=== PATIENT | female | born 1985 | race American Indian/Alaskan Native ===

== ENCOUNTER 2016-04-04 13:21 | Emergency (ER) | payer MEDICAID ==
[2016-04-04] MEDS ORDERED: TORADOL IV ONE (16:12)
[2016-04-04] MEDS ORDERED: ZOFRAN IV ONE (16:12)
--- NOTE | 2016-04-04 16:16 | Emergency Department Report ---
Chief Complaint: Back Pain/Injury Stated Complaint: BACK PAIN/ABD PAIN - HPI History of Present Illness: Patient c/o achy right abdomen and flank pain x 5 days ago. Reports bruising appearing to flank and abdomen the following day. Reports nausea. Denies fever, chills, vomit, diarrhea, genitourinary symptoms. LMP 03/19/16 - Exam Vital Signs: Vital Signs 04/04/16 13:46 Temperature 98.5 F Pulse Rate 75 Respiratory 18 Rate Blood Pressure 138/83 O2 Sat by Pulse 99 Oximetry Physical Exam: General: NAD. Abdomen: Generalized tenderness. + Ecchymosis of right flank and lower back. + BS. MSE screening note: Focused history and physical exam performed. Due to findings the following was ordered: CBC, CMP, UA, Lipase, CT abd/pelvis w /o, UHCG, Saline lock, Toradol 15 mg IV once. ED Medical Decision Making - Medical Decision Making Patient to see MD immediately at main ED. ED Disposition for MSE Condition: Stable
[2016-04-04 16:50] LABS: Basophils % (Auto) 0.8 % (0.0-1.8); Eosinophils % (Auto) 0.9 % (0.0-4.3); Hematocrit 36.8 % (30.3-42.9); Hemoglobin 11.7 gm/dl (10.1-14.3); Mean Corpuscular HGB Conc 32 % (30-34); Mean Corpuscular Hemoglobin 27 pg (28-32); Mean Corpuscular Volume 84 fl (79-97); Platelet Count 440 K/mm3 (140-440); White Blood Count 6.6 K/mm3 (4.5-11.0)
[2016-04-04 17:11] LABS: Alanine Aminotransferase 18 units/L (7-56); Albumin 3.8 g/dL (3.9-5); Alkaline Phosphatase 48 units/L (35-129); Anion Gap 17 mmol/L; Bilirubin,Total 0.2 mg/dL (0.1-1.2); Blood Urea Nitrogen 6 mg/dL (7-17); Calcium 8.6 mg/dL (8.4-10.2); Carbon Dioxide 24 mmol/L (22-30); Chloride 100.9 mmol/L (98-107); Glucose 91 mg/dL (65-100); Lipase 21 units/L (13-60); Potassium 3.9 mmol/L (3.6-5.0); Sodium 138 mmol/L (137-145); Total Protein 7.7 g/dL (6.3-8.2)
[2016-04-04 17:48] LABS: Bilirubin,Urine NEG (Negative); Blood,Urine NEG (Negative); Ketones,Urine NEG (Negative); Leukocyte Esterase,Urine NEG (Negative); Mucus,Urine FEW /HPF; Nitrite,Urine NEG (Negative); Protein,Urine <15 mg/dL mg/dL (Negative); Urobilinogen,Urine < 2.0 mg/dL (<2.0)
--- NOTE | 2016-04-04 18:16 | Emergency Department Report ---
ED Abdominal Pain HPI - General Chief Complaint: Back Pain/Injury Stated Complaint: BACK PAIN/ABD PAIN Time Seen by Provider: 04/04/16 17:48 Source: patient Mode of arrival: Ambulatory Limitations: No Limitations - History of Present Illness Initial Comments: Patient presents with abdominal pain and lower back pain that began 4 days ago. She also reports bruising to right upper anterior thigh and her back. She denies injury, swelling. She has been taking Tylenol and Motrin for the pain with mild relief. She states the pain is to the point where she is losing sleep at night and has decreased appetite. She does admit to the pain begin generalized in abdominal area and admits to nausea. She denies urinary symptoms including frequency, urgency and pain. MD Complaint: abdominal pain, flank pain, other (bilateral back pain) -: Gradual, days(s) (4) Location: diffuse (greater on right) Radiation: none Migration to: bilateral flank Severity: severe Severity scale (0 -10): 9 Consistency: intermittent Improves With: rest Worsens With: movement, other (palpation) Associated Symptoms: nausea, constipation. denies: vomiting, diarrhea, fever, chills Treatments Prior to Arrival: NSAIDs, other (tylenol) - Related Data Previous Rx's Medication Instructions Recorded Last Taken Type HYDROcodone/APAP 5-325 [[place] 1 each PO Q8HR PRN #20 tablet 04/04/16 Unknown Rx 5/325] Allergies Allergy/AdvReac Type Severity Reaction Status Date / Time Penicillins Allergy Rash Verified 04/04/16 13:46 ED Review of Systems ROS: Stated complaint: BACK PAIN/ABD PAIN Other details as noted in HPI Constitutional: denies: chills, fever Eyes: denies: eye pain, eye discharge, vision change ENT: denies: ear pain, throat pain Respiratory: denies: cough, shortness of breath, wheezing Cardiovascular: denies: chest pain, palpitations Endocrine: no symptoms reported Gastrointestinal: as per HPI, abdominal pain, nausea. denies: vomiting, diarrhea, constipation, hematemesis, melena Genitourinary: denies: urgency, dysuria, hematuria, discharge Musculoskeletal: as per HPI, back pain Skin: as per HPI, other (echymosis RU leg, mid lumbar) Neurological: denies: headache, weakness, numbness, paresthesias, confusion Psychiatric: denies: anxiety, depression Hematological/Lymphatic: as per HPI. denies: easy bleeding, easy bruising ED Past Medical Hx - Past Medical History Previous Medical History?: Yes - Surgical History Past Surgical History?: Yes Hx Breast Surgery: Yes (Breast reduction) - Social History Smoking Status: Never Smoker Substance Use Type: Alcohol, Non Opiate Pain - Medications Home Medications: Home Medications Medication Instructions Recorded Confirmed Last Taken Type HYDROcodone/APAP 5-325 [[place] 1 each PO Q8HR PRN #20 tablet 04/04/16 Unknown Rx 5/325] ED Physical Exam - General Limitations: No Limitations General appearance: alert, in no apparent distress - Head Head exam: Present: atraumatic, normocephalic - Eye Eye exam: Present: normal appearance, PERRL - Neck Neck exam: Present: normal inspection. Absent: tenderness - Respiratory Respiratory exam: Present: normal lung sounds bilaterally. Absent: respiratory distress - Cardiovascular Cardiovascular Exam: Present: regular rate, normal rhythm. Absent: systolic murmur, diastolic murmur, rubs, gallop - GI/Abdominal GI/Abdominal exam: Present: soft, tenderness (diffuse), normal bowel sounds. Absent: distended, guarding, rebound, rigid - Back Exam Back exam: Present: normal inspection, full ROM (but with pain in lumbar region bilateral), tenderness (bilateral lumbar), CVA tenderness (R), CVA tenderness (L ) - Neurological Exam Neurological exam: Present: alert, oriented X3 - Psychiatric Psychiatric exam: Present: normal affect, normal mood - Skin Skin exam: Present: warm, dry, intact, normal color, ecchymosis (right upper thigh has a small bruise, mid lumbar region with scattered bruising). Absent: rash ED Course Vital Signs 04/04/16 04/04/16 13:46 18:45 Temperature 98.5 F Pulse Rate 75 66 Respiratory 18 16 Rate Blood Pressure 138/83 Blood Pressure 104/58 [Left] O2 Sat by Pulse 99 100 Oximetry ED Medical Decision Making - Lab Data Result diagrams: 04/04/16 16:31 04/04/16 16:31 - Radiology Data PROCEDURE: CT ABDOMEN PELVIS WO CON TECHNIQUE: Computerized axial tomography of the abdomen and pelvis was performed without intravenous contrast. This study is performed without intravascular contrast material and its sensitivity for abdominal and pelvic pathology, including neoplasms, inflammation, abscess, free fluid, thrombosis, arterial dissection and infarction, is reduced compared with a contrast enhanced study. HISTORY: flank/abd pain/ Mijares Holland sign. COMPARISON: No prior studies are available for comparison. FINDINGS: Visualized lower thorax: No significant abnormality. Liver: Normal size and attenuation. Spleen: Normal size and attenuation. Gallbladder and biliary system: Normal. Pancreas: Normal. Adrenals: Normal. Kidneys: High attenuation at the cortical medullary junctions suggesting early medullary nephrocalcinosis. No renal stones or obstructive uropathy seen at this time. GI tract: No oral contrast. Normal caliber appendix.. Lymph nodes and mesentery: Normal. Vasculature: Normal. Bladder: Normal. Reproductive organs: Cystic change left adnexa measures 3.0 x 3.5 centimeters. Additional cystic change right adnexa suspected in the 2.6 x 2.3 centimeters. Consider ultrasound if warranted Peritoneum: No free fluid. Musculoskeletal structures: No significant abnormality. Other: No evidence of retroperitoneal bleed. 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 CT of abdomen shows ovarian cyst, negative for retroperitoneal bleed. I've spoken with Dr. Ledbetter, and he advises to give her [place] prescription and refer her to her [facility]. - Differential Diagnosis retroperitoneal bleed, abdominal pain, ovarian cysts Critical Care Time: No Critical care attestation.: If time is entered above; I have spent that time in minutes in the direct care of this critically ill patient, excluding procedure time. ED Disposition Clinical Impression: Ovarian cyst, Nephrocalcinosis Disposition: DISCHARGED TO HOME OR SELFCARE Is pt being admited?: No Does the pt Need Aspirin: No Condition: Stable Instructions: Ovarian Cyst (ED) Additional Instructions: It is advised that you follow-up with your [facility] physician as soon as possible. Please return to ED if abdominal pain worsens or fails to respond to pain medication. Or if fever, chills, nausea, vomiting, blood in urine or stool. Prescriptions: HYDROcodone/APAP 5-325 [[place] 5/325] 1 each PO Q8HR PRN #20 tablet PRN Reason: Pain Forms: Work/School Release Form(ED) Time of Disposition: 19:24
--- NOTE | 2016-04-04 18:39 | Cat Scan Report ---
FINAL REPORT PROCEDURE: CT ABDOMEN PELVIS WO CON TECHNIQUE: Computerized axial tomography of the abdomen and pelvis was performed without intravenous contrast. This study is performed without intravascular contrast material and its sensitivity for abdominal and pelvic pathology, including neoplasms, inflammation, abscess, free fluid, thrombosis, arterial dissection and infarction, is reduced compared with a contrast enhanced study. HISTORY: flank/abd pain/ Mijares Holland sign. COMPARISON: No prior studies are available for comparison. FINDINGS: Visualized lower thorax: No significant abnormality. Liver: Normal size and attenuation. Spleen: Normal size and attenuation. Gallbladder and biliary system: Normal. Pancreas: Normal. Adrenals: Normal. Kidneys: High attenuation at the cortical medullary junctions suggesting early medullary nephrocalcinosis. No renal stones or obstructive uropathy seen at this time. GI tract: No oral contrast. Normal caliber appendix.. Lymph nodes and mesentery: Normal. Vasculature: Normal. Bladder: Normal. Reproductive organs: Cystic change left adnexa measures 3.0 x 3.5 centimeters. Additional cystic change right adnexa suspected in the 2.6 x 2.3 centimeters. Consider ultrasound if warranted Peritoneum: No free fluid. Musculoskeletal structures: No significant abnormality. Other: No evidence of retroperitoneal bleed. 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
[2016-04-04 18:46] VITALS: BP 104/58
[2016-04-04 18:56] LABS: INR 1.09 (0.87-1.13)
[2016-04-04 18:57] LABS: Partial Thromboplastin Time 29.9 Sec. (24.2-36.6)
== END 2016-04-04 19:38 | disposition home or self-care (01) ==
LOC: ED 13:21
DX: N83.209 Unspecified ovarian cyst, unspecified side (principal); E83.59 Other disorders of calcium metabolism; N29 Other disorders of kidney and ureter in diseases classified elsewhere
CPT/HCPCS: 36415; 74176; 80053; 81001; 81025; 83690; 85025; 85610; 85730; 96374; 96375; 99284; J1885; J2405

== ENCOUNTER 2016-07-04 21:36 | Emergency (ER) | payer MEDICAID ==
[2016-07-04 22:30] LABS: Hemoglobin 12.1 gm/dl (10.1-14.3); Mean Corpuscular HGB Conc 32 % (30-34); Mean Corpuscular Hemoglobin 27 pg (28-32); Mean Corpuscular Volume 84 fl (79-97); Platelet Count 403 K/mm3 (140-440); Red Blood Count 4.55 M/mm3 (3.65-5.03); Red Cell Distribution Width 14.2 % (13.2-15.2); White Blood Count 6.8 K/mm3 (4.5-11.0)
[2016-07-04 22:38] LABS: Anion Gap 17 mmol/L; BUN/Creatinine Ratio 11.42; Blood Urea Nitrogen 8 mg/dL (7-17); Carbon Dioxide 24 mmol/L (22-30); Chloride 100.1 mmol/L (98-107); Glucose 100 mg/dL (65-100); Potassium 3.6 mmol/L (3.6-5.0); Sodium 137 mmol/L (137-145)
[2016-07-05 01:02] LABS: Bilirubin,Urine NEG (Negative); Blood,Urine NEG (Negative); Ketones,Urine TR mg/dL (Negative); Leukocyte Esterase,Urine NEG (Negative); Mucus,Urine FEW /HPF; Nitrite,Urine NEG (Negative); Protein,Urine <15 mg/dL mg/dL (Negative); Urobilinogen,Urine < 2.0 mg/dL (<2.0)
[2016-07-05] MEDS ORDERED: TORADOL IM ONE (03:58)
--- NOTE | 2016-07-05 04:45 | Cat Scan Report ---
FINAL REPORT PROCEDURE: CT HEAD/BRAIN WO CON TECHNIQUE: Computerized tomography of the head was performed without contrast material. HISTORY: right arm and right leg numbness COMPARISON: No prior studies are available for comparison. FINDINGS: Skull and scalp: Normal. Paranasal sinuses: Normal. Ventricles and subarachnoid spaces: Normal. Cerebrum: No evidence of hemorrhage, acute infarction or mass . Cerebellum and brainstem: No evidence of hemorrhage, acute infarction or mass. Vasculature: Normal. Comments: None. IMPRESSION: Normal Examination
--- NOTE | 2016-07-05 04:56 | Cat Scan Report ---
FINAL REPORT PROCEDURE: CT CERVICAL SPINE WO CON TECHNIQUE: Computerized tomography of the cervical spine was performed from the skull base to T1 without contrast material. HISTORY: right arm and right leg numbness COMPARISON: No prior studies are available for comparison. FINDINGS: C1-2: No significant abnormality. C2-3: No significant abnormality. C3-4: No significant abnormality. C4-5: No significant abnormality. C5-6: No significant abnormality. C6-7: No significant abnormality. C7-T1: No significant abnormality. Other: There are no fractures or malalignments. There is no facet dislocation. Prevertebral soft tissues are normal in thickness.. IMPRESSION: No significant abnormality.
--- NOTE | 2016-07-05 05:36 | Emergency Department Report ---
ED Neuro Deficit HPI - General Chief Complaint: Neuro Symptoms/Deficit Stated Complaint: RT SIDE NUMB/TINGLING Time Seen by Provider: 07/05/16 03:49 Source: patient Mode of arrival: Ambulatory Limitations: No Limitations - History of Present Illness Initial Comments: 30-year-old female with no significant past medical history presents to the hospital with complaints are right arm and right leg numbness 2 weeks. Symptoms are constant but worse with activity. Patient also have intermittent cramping to her fingers. Patient complains of 10/10 right lower back and right shoulder pain worse with movement and palpation. No alleviating factors reported. Patient denies headache, neck pain, recent trauma, or syncope. 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 - Related Data Home Medications: Previous Rx's Medication Instructions Recorded Last Taken Type Ibuprofen [Motrin] 800 mg PO Q8HR PRN #30 tablet 07/05/16 Unknown Rx traMADol [Ultram 50 MG tab] 50 mg PO Q6HR PRN #20 tablet 07/05/16 Unknown Rx Allergies/Adverse Reactions: Allergies Allergy/AdvReac Type Severity Reaction Status Date / Time Penicillins Allergy Rash Verified 04/04/16 13:46 ED Review of Systems ROS: Stated complaint: RT SIDE NUMB/TINGLING Other details as noted in HPI Comment: All other systems reviewed and negative Other: Constitutional: No fevers chills Eyes: No eye pain visual changes or discharge ENT: No ear pain or throat pain Neck: Denies pain Respiratory: Denies cough wheezing shortness of breath Cardiovascular: Denies chest pain, palpitations, syncope GI: Denies abdominal pain, nausea, vomiting, diarrhea : Denies dysuria Musculoskeletal: Denies back pain Skin: Denies rash, lesions, erythema Neurologic: Denies headache ED Past Medical Hx - Past Medical History Previous Medical History?: No - Surgical History Hx Breast Surgery: Yes (Breast reduction) - Social History Smoking Status: Never Smoker - Medications Home Medications: Home Medications Medication Instructions Recorded Confirmed Last Taken Type Ibuprofen [Motrin] 800 mg PO Q8HR PRN #30 tablet 07/05/16 Unknown Rx traMADol [Ultram 50 MG tab] 50 mg PO Q6HR PRN #20 tablet 07/05/16 Unknown Rx ED Neuro Physical Exam - General Limitations: No Limitations Suspected Stroke: Yes - NIHSS Assessment Interval: Baseline 1a. Level of Consciousness: alert 1b. LOC Questions: answers correctly 1c. LOC Commands: performs tasks correctly 2. Best Gaze: normal 3. Visual: no visual loss 4. Facial Palsy: normal symmetrical movement 5b. Motor Arm Right: no drift 5a. Motor Arm Left: no drift 6a. Motor Leg Left: no drift 6b. Motor Leg Right: no drift 7. Limb Ataxia: absent 8. Sensory: mild/moderate sensory loss 9. Best Language: no aphasia 10. Dysarthria: normal 11. Extinction/Inattention: no abnormality Total Score: 1 Stroke Severity: Minor Stroke - Other Other exam information: General: No limitations, patient is alert in no acute distress Head exam: Atraumatic, normocephalic Eyes exam: Normal appearance ENT: Moist mucous membrane, normal oropharynx Neck exam: Normal inspection, full range of motion, no meningismus nontender Respiratory exam: Clear to auscultation bilateral, no wheezes, rales, crackles Cardiovascular: Normal rate and rhythm, normal heart sounds Abdomen: Soft, nondistended, and nontender, with normal bowel sounds, no rebound, or guarding Extremity: Full range of motion normal inspection no deformity Back: Normal Inspection, full range of motion, right sided lower muscular back pain Neurologic: Alert, oriented x3, cranial nerves intact, right arm decreased sensation to pinprick distally and extending more proximal to the elbow. Right leg decreased sensation to pinprick distally and extending to the knee. Sensation is intact above the elbow and knee of the right extremity. 5/5 upper extremity strength, [id number] function intact. Psychiatric: normal affect, normal mood Skin: Warm, dry, intact ED Course Vital Signs 07/04/16 07/05/16 21:55 02:22 Temperature 98.3 F Pulse Rate 80 69 Respiratory 18 18 Rate Blood Pressure 135/89 Blood Pressure 125/65 [Left] O2 Sat by Pulse 100 96 Oximetry - Lab Data Result diagrams: 07/04/16 22:04 07/04/16 22:04 Lab Results 07/04/16 07/04/16 07/04/16 Range/Units 22:04 22:04 23:13 WBC 6.8 (4.5-11.0) K/mm3 RBC 4.55 (3.65-5.03) M/mm3 Hgb 12.1 (10.1-14.3) gm/dl Hct 38.0 (30.3-42.9) % MCV 84 (79-97) fl MCH 27 L (28-32) pg MCHC 32 (30-34) % RDW 14.2 (13.2-15.2) % Plt Count 403 (140-440) K/mm3 Sodium 137 (137-145) mmol/L Potassium 3.6 (3.6-5.0) mmol/L Chloride 100.1 (98-107) mmol/L Carbon Dioxide 24 (22-30) mmol/L Anion Gap 17 mmol/L BUN 8 (7-17) mg/dL Creatinine 0.7 (0.7-1.2) mg/dL Estimated GFR > 60 ml/min BUN/Creatinine Ratio 11.42 % Glucose 100 (65-100) mg/dL Calcium 9.0 (8.4-10.2) mg/dL Urine Color Yellow (Yellow) Urine Turbidity Clear (Clear) Urine pH 5.0 (5.0-7.0) Ur Specific [place] 1.024 (1.003-1.030) Urine Protein <15 mg/dl (Negative) mg/dL Urine Glucose (UA) Neg (Negative) mg/dL Urine Ketones Tr (Negative) mg/dL Urine Blood Neg (Negative) Urine Nitrite Neg (Negative) Urine Bilirubin Neg (Negative) Urine Urobilinogen < 2.0 (<2.0) mg/dL Ur Leukocyte Esterase Neg (Negative) Urine WBC (Auto) 1.0 (0.0-6.0) /HPF Urine RBC (Auto) 1.0 (0.0-6.0) /HPF U Epithel Cells (Auto) 1.0 (0-13.0) /HPF Urine Mucus Few /HPF Urine HCG, Qual Negative (Negative) - Radiology Data Radiology results: report reviewed CT head: No acute findings CT cervical spine: No acute findings - Medical Decision Making CT head and cervical spine unremarkable. Patient has decreased sensation to right extremity distally without any motor deficit or uncoordination. Patient be encouraged to follow-up with primary care doctor for further workup and evaluation of neurologic findings. Neurology follow-up also be provided. - Differential Diagnosis radiculopathy, herniated disc, neuropathy, CVA Critical Care Time: No Critical care attestation.: If time is entered above; I have spent that time in minutes in the direct care of this critically ill patient, excluding procedure time. ED Disposition Clinical Impression: Paresthesia of right upper and lower extremity, Low back strain Disposition: DISCHARGED TO HOME OR SELFCARE Is pt being admited?: No Does the pt Need Aspirin: No Condition: Stable Instructions: Paresthesia (ED), Low Back Strain (ED) Additional Instructions: Patient medications as needed. Return if symptoms worsen as indicated by discharge instructions. Follow-up with your doctor and either neurologist provided Prescriptions: Ibuprofen [Motrin] 800 mg PO Q8HR PRN #30 tablet PRN Reason: Pain traMADol [Ultram 50 MG tab] 50 mg PO Q6HR PRN #20 tablet PRN Reason: Pain Referrals: PRIMARY CARE,MD [Primary Care Provider] - 3-5 Days TIM HERNANDEZ MD [Staff Physician] - 3-5 Days (Neurology) RENATE SLAUGHTER MD [Staff Physician] - 3-5 Days (Neurology) Forms: Work/School Release Form(ED) Time of Disposition: 05:43
[2016-07-05 06:15] VITALS: BP 110/59
== END 2016-07-05 06:15 | disposition home or self-care (01) ==
LOC: ED 21:36
DX: S39.012A Strain of muscle, fascia and tendon of lower back, initial encounter (principal); R20.9 Unspecified disturbances of skin sensation; Z88.0 Allergy status to penicillin; X58.XXXA Exposure to other specified factors, initial encounter; Y93.9 Activity, unspecified; Y99.9 Unspecified external cause status; Y92.9 Unspecified place or not applicable
CPT/HCPCS: 36415; 70450; 72125; 80048; 81001; 81025; 85027; 93005; 93010; 96372; 99284; J1885

== ENCOUNTER 2016-11-24 07:33 | Emergency (ER) | payer MEDICAID ==
[2016-11-24 08:36] LABS: Bacteria,Urine 1+ /HPF (Negative); Bilirubin,Urine NEG (Negative); Blood,Urine NEG (Negative); Ketones,Urine NEG (Negative); Leukocyte Esterase,Urine NEG (Negative); Nitrite,Urine NEG (Negative); Protein,Urine <15 mg/dL mg/dL (Negative); Urobilinogen,Urine < 2.0 mg/dL (<2.0); WBC,Urine < 1.0 /HPF (0.0-6.0)
[2016-11-24 09:16] LABS: Eosinophils % (Auto) 0.6 % (0.0-4.3); Hematocrit 35.4 % (30.3-42.9); Hemoglobin 11.9 gm/dl (10.1-14.3); Mean Corpuscular HGB Conc 34 % (30-34); Mean Corpuscular Hemoglobin 28 pg (28-32); Mean Corpuscular Volume 84 fl (79-97); Platelet Count 405 K/mm3 (140-440); Red Cell Distribution Width 13.8 % (13.2-15.2); White Blood Count 6.1 K/mm3 (4.5-11.0)
[2016-11-24 09:33] LABS: Alanine Aminotransferase 15 units/L (7-56); Albumin 3.7 g/dL (3.9-5); Alkaline Phosphatase 48 units/L (35-129); Anion Gap 17 mmol/L; Blood Urea Nitrogen 8 mg/dL (7-17); Calcium 8.8 mg/dL (8.4-10.2); Carbon Dioxide 23 mmol/L (22-30); Chloride 100.8 mmol/L (98-107); Glucose 96 mg/dL (65-100); Potassium 3.9 mmol/L (3.6-5.0); Sodium 137 mmol/L (137-145); Total Protein 7.3 g/dL (6.3-8.2)
[2016-11-24 10:39] LABS: Lipase 18 units/L (13-60)
--- NOTE | 2016-11-24 12:57 | Emergency Department Report ---
HPI - General Chief Complaint: Abdominal Pain Time Seen by Provider: 11/24/16 11:40 - HPI HPI: This is a 31 year-old female presents emergency Department with complaint of a 2-3 day history of lower abdominal pain. She is also about 6 weeks . With this she is with one previous miscarriage and one live child. She is on vitamins. Her [employer] is Dr. Manjit An. She is not taking anything for her symptoms prior to Presentation. There is some intermittent nausea but she denies any dysuria, vaginal bleeding, fever, vaginal discharge. No recent travel or sick contacts at home. She otherwise denies any past medical history. ED Past Medical Hx - Past Medical History Previous Medical History?: No - Surgical History Past Surgical History?: Yes Hx Breast Surgery: Yes (Breast reduction) - Social History Smoking Status: Never Smoker Substance Use Type: None - Medications Home Medications: Home Medications Medication Instructions Recorded Confirmed Last Taken Type Ibuprofen [Motrin] 800 mg PO Q8HR PRN #30 tablet 07/05/16 Unknown Rx traMADol [Ultram 50 MG tab] 50 mg PO Q6HR PRN #20 tablet 07/05/16 Unknown Rx ED Review of Systems ROS: Stated complaint: ABDOMINAL PAIN Other details as noted in HPI Comment: All other systems reviewed and negative Constitutional: denies: chills, fever Eyes: denies: eye pain, eye discharge, vision change ENT: denies: ear pain, throat pain Respiratory: denies: cough, shortness of breath, wheezing Cardiovascular: denies: chest pain, palpitations Gastrointestinal: abdominal pain, nausea Genitourinary: denies: urgency, dysuria, discharge Musculoskeletal: denies: back pain, joint swelling, arthralgia Skin: denies: rash, lesions Neurological: denies: headache, weakness, paresthesias Physical Exam - Physical Exam Vital Signs: Vital Signs 11/24/16 11/24/16 07:38 11:59 Temperature 98.6 F 98.2 F Pulse Rate 89 74 Respiratory 16 16 Rate Blood Pressure 140/77 Blood Pressure 110/54 [Left] O2 Sat by Pulse 100 97 Oximetry Physical Exam: GENERAL: The patient is well-developed well-nourished. HENT: Normocephalic. Atraumatic. Patient has moist mucous membranes. EYES: Extraocular motions are intact. Pupils equal reactive to light bilaterally. NECK: Supple. Trachea is midline. CHEST/LUNGS: Clear to auscultation. There is no respiratory distress noted. HEART/CARDIOVASCULAR: Regular. There is no tachycardia. There is no gallop rub or murmur. ABDOMEN: Abdomen is soft, nontender. Unable to reproduce discomfort to palpation. No guarding or rebound tenderness. Patient has normal bowel sounds. There is no abdominal distention. SKIN: There is no rash. There is no edema. There is no diaphoresis. NEURO: The patient is awake, alert, and oriented. The patient is cooperative. The patient has no focal neurologic deficits. The patient has normal speech. MUSCULOSKELETAL: There is no tenderness or deformity. There is no evidence of acute injury. ED Course Vital Signs 11/24/16 11/24/16 07:38 11:59 Temperature 98.6 F 98.2 F Pulse Rate 89 74 Respiratory 16 16 Rate Blood Pressure 140/77 Blood Pressure 110/54 [Left] O2 Sat by Pulse 100 97 Oximetry ED Medical Decision Making - Lab Data Result diagrams: 11/24/16 08:21 11/24/16 08:21 - Radiology Data Radiology results: report reviewed ULTRASOUND OB LESS THAN 14 WEEKS ULTRASOUND OB TRANSVAGINAL HISTORY: Abdominal pain during . TECHNIQUE: Transabdominal and transvaginal ultrasound with color and spectral doppler interrogation. The uterus measures 10 x 5 x 7 cm. No uterine mass. There is a small cyst measuring 7.1 mm within the endometrial canal. This probably represents a tiny intrauterine gestational sac. This would correlate with a 5 week, 3 day . Estimated due date 07/24/17. No heart tones or pole could be confidently identified at this time. A small yolk sac is suggested. A small subchorionic hemorrhage is noted. The ovaries are normal size, contour and echotexture. IMPRESSION: A tiny intrauterine gestational sac is suggested but no pole or heart tones are demonstrated at this time. This probably represents a normal early intrauterine . Blighted ovum could be considered. Close interval followup is recommended. - Medical Decision Making 31-year-old female presents to the emergency department with a complaint of some lower abdominal pain while . Beta hCG was about 4700. Ultrasound shows a tiny intrauterine gestational sac that could be early but blighted ovum or miscarriage is not ruled out. Vital signs stable. Labs are unremarkable otherwise. She was given the instruction that she is to return to the emergency department or to her [employer] in a few days for a repeat hormone level and ultrasound. If there is development on the ultrasound and the hormone level is increasing, then this is an early . If the opposite is occurring that it is most likely a miscarriage. Otherwise in the meantime she will stay on her vitamins and use only Tylenol for discomfort. She will return to the ER sooner with any worsening or symptoms, development of vaginal bleeding or any acute distress. - Differential Diagnosis , threatened miscarriage, spontaneous miscarriage, fibroids, UTI Critical Care Time: No Critical care attestation.: If time is entered above; I have spent that time in minutes in the direct care of this critically ill patient, excluding procedure time. ED Disposition Clinical Impression: Threatened Qualifiers: Weeks of gestation: less than 8 weeks Qualified Code(s): Z3A.01 - Less than 8 weeks gestation of Abdominal pain Qualifiers: Abdominal location: lower abdomen, unspecified Qualified Code(s): R10.30 - Lower abdominal pain, unspecified Disposition: DC- TO HOME OR SELFCARE Is pt being admited?: No Condition: Stable Instructions: Threatened Miscarriage (ED), (ED), Abdominal Pain (ED) Additional Instructions: Your hormone today was 4700. You need to to return to the emergency department or see your [employer]CH[employer]IC in 2-3 days for a repeat hormone level and possibly ultrasound. If the hormone level is increasing and the repeat ultrasound shows a yolk sac, pole or heart tones, then we know this was a early . If the hormone level is decreasing then this was most likely a miscarriage. Return to the emergency department sooner with any worsening of your abdominal discomfort , development of vaginal bleeding, or any acute distress. In the meantime, continue with your vitamins and take only Tylenol for discomfort, using weight-based dosing. Referrals: PRIMARY CAREMD [Primary Care Provider] - 3-5 Days Forms: Work/School Release Form(ED) Time of Disposition: 13:48
--- NOTE | 2016-11-24 13:16 | Ultrasound Report ---
ULTRASOUND OB LESS THAN 14 WEEKS ULTRASOUND OB TRANSVAGINAL HISTORY: Abdominal pain during . TECHNIQUE: Transabdominal and transvaginal ultrasound with color and spectral doppler interrogation. The uterus measures 10 x 5 x 7 cm. No uterine mass. There is a small cyst measuring 7.1 mm within the endometrial canal. This probably represents a tiny intrauterine gestational sac. This would correlate with a 5 week, 3 day . Estimated due date 07/24/17. No heart tones or pole could be confidently identified at this time. A small yolk sac is suggested. A small subchorionic hemorrhage is noted. The ovaries are normal size, contour and echotexture. IMPRESSION: A tiny intrauterine gestational sac is suggested but no pole or heart tones are demonstrated at this time. This probably represents a normal early intrauterine . Blighted ovum could be considered. Close interval followup is recommended.
[2016-11-24 14:23] VITALS: BP 119/53
== END 2016-11-24 14:23 | disposition home or self-care (01) ==
LOC: ED 07:33
DX: O20.0 Threatened abortion (principal); Z3A.01 Less than 8 weeks gestation of pregnancy
CPT/HCPCS: 36415; 76801; 76817; 80053; 81001; 83690; 84702; 85025

== ENCOUNTER 2016-11-26 10:09 | Emergency (ER) | payer MEDICAID ==
[2016-11-26 10:27] VITALS: BP 128/67
--- NOTE | 2016-11-26 12:20 | Emergency Department Report ---
Chief Complaint: Medical Clearance Stated Complaint: REPEAT LABS Time Seen by Provider: 11/26/16 11:42 - HPI History of Present Illness: Patient is a 31-year-old female presents to ED following up from visit to the ER 2 days ago to check beta Quant hCG levels. patient denies vaginal spotting or bleeding. Patient states she had initially had some lower pelvic cramping prior to ED visit 2 days ago. Patient states that is resolved. She states she gets care from Dr. Manjit villagran on [address] she states that she takes her vitamins daily. - ROS Review of Systems: Denies all symptoms - Exam Vital Signs: Vital Signs 11/26/16 10:22 Temperature 98 F Pulse Rate 72 Respiratory 16 Rate Blood Pressure 128/67 O2 Sat by Pulse 100 Oximetry Physical Exam: GENERAL: Alert and oriented x3, no apparent distress, Normal Gait, atraumatic. HEAD: Head is normocephalic and a-traumatic. LUNGS: Symetrical with respiration, No wheezing, no rales or crackles, CTAB. HEART: S1, S2 present, regular rate and rhythm without murmur, no rubs, no gallops. Non tender to palpation ABDOMEN: No organomegaly was noted,Positive bowel sounds, soft, and non- distended. . Nontender to palpation on all Quadrants, NO CVA tenderness. SKIN: Warm and dry, No lesions, No ulceration or induration present. MSE screening note: Focused history and physical exam performed. Due to findings the following was ordered: ED Medical Decision Making - Medical Decision Making 31-year-old female presents to ED for recheck of beta hCG levels. The course: She reports down well. Patient had uneventful ED stay. HCG level increased to 7606 from last visit of 4783 Discussed elevated hCG levels the patient. Discussed to follow up with her [facility] in 2-3 days to continue hCG levels as well as a follow-up ultrasound in 1-2 weeks Discussed the patient initially had any vaginal bleeding to return to ED. Vital signs are normal patient is in no acute distress. She understands all instructions given and states she will follow up with her OB ED Disposition for MSE Clinical Impression: Qualifiers: Weeks of gestation: less than 8 weeks Qualified Code(s): Z3A.01 - Less than 8 weeks gestation of Disposition: DC- TO HOME OR SELFCARE Is pt being admited?: No Does the pt Need Aspirin: No Condition: Stable Instructions: (ED) Additional Instructions: Continued to vitamins as needed. Follow-up temperature OB Dr. An 3-5 days. If you start to notice any vaginal bleeding please return to ED. Prescriptions: Acetaminophen [Acetaminophen 8 Hour] 650 mg PO Q8H #20 tablet.er Referrals: PRIMARY CARE, [Primary Care Provider] - 3-5 Days Forms: Work/School Release Form(ED) Time of Disposition: 12:41
== END 2016-11-26 13:05 | disposition home or self-care (01) ==
LOC: ED 10:09
DX: O26.891 Other specified pregnancy related conditions, first trimester (principal); R10.2 Pelvic and perineal pain; Z3A.01 Less than 8 weeks gestation of pregnancy; Z88.0 Allergy status to penicillin
CPT/HCPCS: 36415; 84702; 99283

== ENCOUNTER 2018-08-25 16:09 | Emergency (ER) | payer BC, MEDICAID, OTHER ==
[2018-08-25 16:14] VITALS: BP 129/78
[2018-08-25] MEDS ORDERED: PROVENTIL IH ONE (16:28)
[2018-08-25] MEDS ORDERED: DELTASONE PO ONE (16:28)
[2018-08-25] MEDS ORDERED: CLARITIN PO ONE (16:29)
--- NOTE | 2018-08-25 16:31 | Emergency Department Report ---
Minor Respiratory - HPI Chief Complaint: Dizziness Stated Complaint: SHORTNESS OF BREATH/HEADACHE Time Seen by Provider: 08/25/18 16:27 Duration: 3 Days Pain Location: Facial Severity: mild Minor Respiratory: Yes Able to Tolerate Fluids, No Rhinorrhea, No Sore Throat, No Ear Pain, No Cough, No Sick Contacts, No Hemoptysis, No Chest Pain, No Shortness of Breath, No Fever Other History: Patient is a pleasant 33-year-old comes to the ER with sinus pain, cough and reports of fever. She is ambulatory to the ER in no acute distress. She does have a past medical history of asthma and is taking inhalers and Zyrtec at home. She has not seen a primary care physician. She is afebrile on admission. There is no tachycardia or hypotension. ED Review of Systems ROS: Stated complaint: SHORTNESS OF BREATH/HEADACHE Other details as noted in HPI Comment: All other systems reviewed and negative ED Past Medical Hx - Past Medical History Previous Medical History?: Yes Hx Asthma: Yes Additional medical history: Vaginal delivery x1 - Surgical History Past Surgical History?: Yes Hx Breast Surgery: Yes (Breast reduction) Additional Surgical History: Miscarriage x 1 - Social History Smoking Status: Never Smoker Substance Use Type: None - Medications Home Medications: Home Medications Medication Instructions Recorded Confirmed Last Taken Type Amoxicillin [Trimox CAP] 500 mg PO BID #20 capsule 08/25/18 Unknown Rx Azithromycin [Zithromax Z-YUDY] 250 mg PO DAILY #6 tablet 08/25/18 Unknown Rx Cetirizine HCl [ZyrTEC] 10 mg PO DAILY #30 capsule 08/25/18 Unknown Rx Fluticasone [Flonase] 1 spray NS QDAY #1 bottle 08/25/18 Unknown Rx predniSONE [Deltasone] 20 mg PO DAILY #5 tablet 08/25/18 Unknown Rx Minor Respiratory Exam - Exam General: Vital signs noted. No distress. Alert and acting appropriately. HEENT: Yes Pharyngeal Erythema, Yes Moist Mucous Membranes, Yes Frontal Tenderness, Yes Maxillary Tenderness, No Pharyngeal Exudates, No Rhinorrhea Ear: Neither TM Bulge, Neither TM Erythema Neck: Yes Supple, No Adenopathy Lungs: Yes Good Air Exchange, Yes Wheezes Heart: Yes Regular, No Murmur Skin: No Rash, No Edema Neurologic: Alert and oriented, no deficits. Musculoskeletal: Unremarkable. ED Course Vital Signs 08/25/18 16:13 Temperature 98 F Pulse Rate 77 Respiratory 14 Rate Blood Pressure 129/78 [Left] O2 Sat by Pulse 99 Oximetry ED Medical Decision Making - Medical Decision Making MEDICATED IN ER DC HOME WITH DC PLAN OF CARE Vital Signs 08/25/18 16:13 Temperature 98 F Pulse Rate 77 Respiratory 14 Rate Blood Pressure 129/78 [Left] O2 Sat by Pulse 99 Oximetry - Differential Diagnosis ASTHMA RO PNA Critical care attestation.: If time is entered above; I have spent that time in minutes in the direct care of this critically ill patient, excluding procedure time. ED Disposition Clinical Impression: Asthma, URTI (acute upper respiratory infection), Sinusitis Disposition: DC-01 TO HOME OR SELFCARE Is pt being admited?: No Does the pt Need Aspirin: No Condition: Stable Instructions: Asthma (ED) Additional Instructions: DIET TOLERATED MEDS ORDERED TODAY IN ER FOLLOW INSTRUCTIONS ON THE BOTTLE FOLLOW UP PCP WITHIN 48 HOURS TO ENSURE YOU ARE GETTING BETTER ACTIVITY TOLERATED MOTRIN OR TYLENOL FOR PAIN OR FEVER RETURN TO THE ER FOR WORSENING SYMPTOMS NOT RELIEVED BY YOUR MEDICATIONS. Prescriptions: predniSONE [Deltasone] 20 mg PO DAILY #5 tablet Fluticasone [Flonase] 1 spray NS QDAY #1 bottle Amoxicillin [Trimox CAP] 500 mg PO BID #20 capsule Azithromycin [Zithromax Z-YUDY] 250 mg PO DAILY #6 tablet Cetirizine HCl [ZyrTEC] 10 mg PO DAILY #30 capsule Referrals: [facility] [Outside] - 3-5 Days Time of Disposition: 16:29
[2018-08-25] MEDS ORDERED: FIORICET PO ONE (16:35)
== END 2018-08-25 16:56 | disposition home or self-care (01) ==
LOC: ED 16:09
DX: J45.909 Unspecified asthma, uncomplicated (principal); J06.9 Acute upper respiratory infection, unspecified; J01.10 Acute frontal sinusitis, unspecified; J01.00 Acute maxillary sinusitis, unspecified; Z88.0 Allergy status to penicillin
CPT/HCPCS: 94640; 99283; J7512

== ENCOUNTER 2018-11-09 18:27 | Emergency (ER) | payer OTHER ==
[2018-11-09 18:42] VITALS: BP 126/98
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
[2018-11-09] MEDS ORDERED: PERCOCET 5/325 PO STA (21:00)
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
== END 2018-11-09 21:57 | disposition home or self-care (01) ==
LOC: ED 18:27
DX: S80.02XA Contusion of left knee, initial encounter (principal); J45.909 Unspecified asthma, uncomplicated; Z79.899 Other long term (current) drug therapy; Z88.0 Allergy status to penicillin; V49.9XXA Car occupant (driver) (passenger) injured in unspecified traffic accident, initial encounter; Y93.89 Activity, other specified; Y92.410 Unspecified street and highway as the place of occurrence of the external cause; Y99.8 Other external cause status

== ENCOUNTER 2018-12-19 19:45 | Emergency (ER) | payer SELFPAY ==
--- NOTE | 2018-12-19 20:08 | Emergency Department Report ---
Chief Complaint: Upper Respiratory Infection Stated Complaint: CHEST PAIN/COUGHING BLOODY GREEN MUCUS Time Seen by Provider: 12/19/18 20:03 - HPI History of Present Illness: This is a 33 y.o. F. that presents to the ER with cough, congestion, and chest pain for 2 weeks. Taking OTC cold and flu medication with minimal improvement of symptoms. PMH of asthma - Exam Vital Signs: Vital Signs 12/19/18 19:53 Temperature 97.5 F L Pulse Rate 94 H Respiratory 18 Rate Blood Pressure 136/83 O2 Sat by Pulse 98 Oximetry MSE screening note: Focused history and physical exam performed. Due to findings the following was ordered: ED Disposition for MSE Condition: Stable
--- NOTE | 2018-12-19 20:48 | XRay Report ---
CHEST PA AND LATERAL VIEWS INDICATION: cough. COMPARISON: None. FINDINGS: Support devices: None. Heart: Within normal limits. Lungs/Pleura: No acute pulmonary or pleural findings. IMPRESSION: 1. No significant abnormality. Signer Name: Kwan Naranjo MD Signed: 12/19/2018 8:44 PM Workstation Name: [id number]
[2018-12-19] MEDS ORDERED: IBUPROFEN 800 MG TAB PO ONE (21:07)
[2018-12-19] MEDS ORDERED: ALBUTEROL 2.5 MG/3 ML NEBU IH ONE (21:07)
--- NOTE | 2018-12-19 22:24 | Emergency Department Report ---
- General Chief Complaint: Upper Respiratory Infection Stated Complaint: CHEST PAIN/COUGHING BLOODY GREEN MUCUS Time Seen by Provider: 12/19/18 20:03 Source: patient Mode of arrival: Ambulatory Limitations: No Limitations - History of Present Illness Initial Comments: Patient is a 33-year-old -[place] female with a history of bronchitis who presents for cough productive green head congestion sore throat chest wall pain with cough 5 days. States he is out of albuterol inhaler. There is no sob, no dizziness, no light headedness, no n/v, no diaphoresis. Symptoms are ex acerbated by environmental exposure. Symptoms are relieved by nothing tried. MD Complaint: cough, sore throat, rhinorrhea, nasal congestion, sinus pain Onset/Timin -: days(s) Severity: moderate Severity scale (0 -10): 4 Quality: aching Consistency: intermittent Improves With: nothing Worsens With: activity, other (environmental exposure ) Associated Symptoms: rhinorrhea, nasal congestion, sore throat, cough, chest pain (chest wall pain ), shortness of breath (wheezing ). denies: nausea, vomiting Treatments Prior to Arrival: none - Related Data Previous Rx's Medication Instructions Recorded Last Taken Type Amoxicillin [Trimox CAP] 500 mg PO BID #20 capsule 08/25/18 Unknown Rx Azithromycin [Zithromax Z-YUDY] 250 mg PO DAILY #6 tablet 08/25/18 Unknown Rx Cetirizine HCl [ZyrTEC] 10 mg PO DAILY #30 capsule 08/25/18 Unknown Rx Fluticasone [Flonase] 1 spray NS QDAY #1 bottle 08/25/18 Unknown Rx predniSONE [Deltasone] 20 mg PO DAILY #5 tablet 08/25/18 Unknown Rx Ketorolac [Toradol] 10 mg PO Q6H PRN #15 tablet 11/09/18 Unknown Rx traMADol [Ultram] 50 mg PO Q6HR PRN #20 tablet 11/09/18 Unknown Rx ALBUTEROL Inhaler (OR & NICU) 2 puff IH QID PRN #1 inhalation 12/19/18 Unknown Rx [ProAir HFA Inhaler] Azithromycin [Zithromax Z-YUDY] 250 mg PO DAILY #6 tab 12/19/18 Unknown Rx Benzonatate [Tessalon Perles] 100 mg PO Q8HR PRN #30 capsule 12/19/18 Unknown Rx Ibuprofen [Motrin 800 MG tab] 800 mg PO Q8HR PRN #30 tablet 12/19/18 Unknown Rx predniSONE [Deltasone] 40 mg PO QDAY 5 Days #10 tab 12/19/18 Unknown Rx Allergies Allergy/AdvReac Type Severity Reaction Status Date / Time Penicillins Allergy Rash Verified 04/04/16 13:46 ED Review of Systems ROS: Stated complaint: CHEST PAIN/COUGHING BLOODY GREEN MUCUS Other details as noted in HPI Constitutional: chills, fever Eyes: denies: eye pain, eye discharge, vision change ENT: ear pain, throat pain, congestion Respiratory: cough, shortness of breath, wheezing Cardiovascular: chest pain (chest wall pain with cough ) Endocrine: no symptoms reported Gastrointestinal: denies: abdominal pain, nausea, diarrhea Genitourinary: denies: urgency, dysuria, discharge Musculoskeletal: denies: back pain, joint swelling, arthralgia Skin: denies: rash, lesions Neurological: denies: headache, weakness, paresthesias Psychiatric: denies: anxiety, depression Hematological/Lymphatic: denies: easy bleeding, easy bruising ED Past Medical Hx - Past Medical History Hx Asthma: Yes Additional medical history: Vaginal delivery x1 - Surgical History Hx Breast Surgery: Yes (Breast reduction) Additional Surgical History: Miscarriage x 1 - Social History Smoking Status: Unknown if ever smoked Substance Use Type: None - Medications Home Medications: Home Medications Medication Instructions Recorded Confirmed Last Taken Type Amoxicillin [Trimox CAP] 500 mg PO BID #20 capsule 08/25/18 Unknown Rx Azithromycin [Zithromax Z-YUDY] 250 mg PO DAILY #6 tablet 08/25/18 Unknown Rx Cetirizine HCl [ZyrTEC] 10 mg PO DAILY #30 capsule 08/25/18 Unknown Rx Fluticasone [Flonase] 1 spray NS QDAY #1 bottle 08/25/18 Unknown Rx predniSONE [Deltasone] 20 mg PO DAILY #5 tablet 08/25/18 Unknown Rx Ketorolac [Toradol] 10 mg PO Q6H PRN #15 tablet 11/09/18 Unknown Rx traMADol [Ultram] 50 mg PO Q6HR PRN #20 tablet 11/09/18 Unknown Rx ALBUTEROL Inhaler (OR & NICU) 2 puff IH QID PRN #1 inhalation 12/19/18 Unknown Rx [ProAir HFA Inhaler] Azithromycin [Zithromax Z-YUDY] 250 mg PO DAILY #6 tab 12/19/18 Unknown Rx Benzonatate [Tessalon Perles] 100 mg PO Q8HR PRN #30 capsule 12/19/18 Unknown Rx Ibuprofen [Motrin 800 MG tab] 800 mg PO Q8HR PRN #30 tablet 12/19/18 Unknown Rx predniSONE [Deltasone] 40 mg PO QDAY 5 Days #10 tab 12/19/18 Unknown Rx ED Physical Exam - General Limitations: No Limitations General appearance: alert, in no apparent distress - Head Head exam: Present: normocephalic, normal inspection - Eye Eye exam: Present: normal appearance, PERRL, EOMI. Absent: conjunctival injection, nystagmus Pupils: Present: normal accommodation - ENT ENT exam: Present: mucous membranes moist - Neck Neck exam: Present: normal inspection, full ROM. Absent: tenderness, meningismus, lymphadenopathy, thyromegaly - Respiratory Respiratory exam: Present: wheezes, chest wall tenderness (right lateral chest wall ). Absent: respiratory distress, rales, rhonchi, stridor, prolonged expiratory - Cardiovascular Cardiovascular Exam: Present: regular rate, normal rhythm, normal heart sounds. Absent: systolic murmur, diastolic murmur, rubs, gallop - GI/Abdominal GI/Abdominal exam: Present: soft, normal bowel sounds. Absent: distended, tenderness, bruit, hernia - Rectal Rectal exam: Present: deferred - Extremities Exam Extremities exam: Present: normal inspection - Back Exam Back exam: Present: normal inspection, full ROM. Absent: tenderness, CVA tenderness (R), CVA tenderness (L), rash noted - Neurological Exam Neurological exam: Present: alert, oriented X3, CN II-XII intact, normal gait - Psychiatric Psychiatric exam: Present: normal affect, normal mood - Skin Skin exam: Present: warm, dry, intact, normal color. Absent: rash ED Course Vital Signs 12/19/18 12/19/18 12/19/18 19:53 20:07 21:43 Temperature 97.5 F L 98.7 F Pulse Rate 94 H 96 H Pulse Rate [ 96 H Bilateral Throughout] Respiratory 18 Rate Respiratory 18 Rate [Bilateral Throughout] Blood Pressure 136/83 O2 Sat by Pulse 98 Oximetry 12/19/18 22:08 Temperature Pulse Rate Pulse Rate [ Bilateral Throughout] Respiratory 20 Rate Respiratory Rate [Bilateral Throughout] Blood Pressure O2 Sat by Pulse Oximetry ED Medical Decision Making - EKG Data EKG shows normal: sinus rhythm, axis, intervals, QRS complexes, ST-T waves (nonspecific T Abnormalities ) Rate: normal - EKG Data When compared to previous EKG there are: no significant change Interpretation: no acute changes, normal EKG, nonspecific ST-T wave ward - Radiology Data Radiology results: report reviewed, image reviewed Findings [facility] [address] [place] [address] XRay Report Signed Patient: MAKENZIE CAMPBELL MR#: [id number] : 1985 Acct:[id number] Age/Sex: 33 / F ADM Date: 12/19/18 Loc: ED Attending Dr: Ordering Physician: BONITA ROSENBREG Date of Service: 12/19/18 Procedure(s): XR chest routine 2V Accession Number(s): [id number] cc: BONITA ROSENBERG Fluoro Time In Minutes: CHEST PA AND LATERAL VIEWS INDICATION: cough. COMPARISON: None. FINDINGS: Support devices: None. Heart: Within normal limits. Lungs/Pleura: No acute pulmonary or pleural findings. IMPRESSION: 1. No significant abnormality. Signer Name: Kwan Naranjo MD Signed: 12/19/2018 8:44 PM Workstation Name: [id number] Transcribed By: Dictated By: Kwan Naranjo MD Electronically Authenticated By: Kwan Naranjo MD Signed Date/Time: 12/19/182043 DD/ 43 TD/TT: - Medical Decision Making CXR: normal infiltrate no opacities, chest wall pain improved with ibuprofen, ekg: NSR , NO ST Elevated PA, nonspecific T abnormalities, no change since ekg of june 2016. this is not likely cardiac pain, Heart score 0 x trop level , chest pain is reproducible to palpation of right anterior lateral chest wall. Wheezing is resolved. Pt has been ambulatory in ed with increase sob or wheezing. Plan, dc to home with dx: bronchitis: Azithromycin , refill albuterol, prednisone, ibuprofen, Tessalon pearls. Pt will follow up with pcp in 2-3 days. Will return to ed if symptoms worsen. Critical care attestation.: If time is entered above; I have spent that time in minutes in the direct care of this critically ill patient, excluding procedure time. ED Disposition Clinical Impression: Bronchitis Disposition: DC-01 TO HOME OR SELFCARE Is pt being admited?: No Does the pt Need Aspirin: No Condition: Stable Instructions: Chronic Bronchitis (ED), Upper Respiratory Infection (ED) Prescriptions: predniSONE [Deltasone] 40 mg PO QDAY 5 Days #10 tab Ibuprofen [Motrin 800 MG tab] 800 mg PO Q8HR PRN #30 tablet PRN Reason: pain fever ALBUTEROL Inhaler (OR & NICU) [ProAir HFA Inhaler] 2 puff IH QID PRN #1 inhalation PRN Reason: Shortness Of Breath Benzonatate [Tessalon Perles] 100 mg PO Q8HR PRN #30 capsule PRN Reason: Cough Azithromycin [Zithromax Z-YUDY] 250 mg PO DAILY #6 tab Referrals: ALONSO RHODES MD [Referring] - 3-5 Days Forms: Work/School Release Form(ED) Time of Disposition: 22:41
[2018-12-19 23:05] VITALS: BP 128/77
== END 2018-12-19 22:57 | disposition home or self-care (01) ==
LOC: ED 19:45
DX: J40 Bronchitis, not specified as acute or chronic (principal); J45.909 Unspecified asthma, uncomplicated; Z79.899 Other long term (current) drug therapy; Z88.0 Allergy status to penicillin
CPT/HCPCS: 71046; 93005; 93010; 94640; 94644

== ENCOUNTER 2019-01-29 10:44 | Emergency (ER) | payer SELFPAY ==
--- NOTE | 2019-01-29 11:26 | Event Note ---
ED Screening Note Date of service: 01/29/19 Time: : ED Screening Note: 33 y o female presents with chest pain and headaches left sided 10/10 pain with blurred vison EMS was called to [facility] and BP was elevated presents to ED for eval non resolved pain PMH : asthma This initial assessment/diagnostic orders/clinical plan/treatment(s) is/are subject to change based on patients health status, clinical progression and re- assessment by fellow clinical providers in the ED. Further treatment and workup at subsequent clinical providers discretion. Patient/guardian urged not to elope from the ED as their condition may be serious if not clinically assessed and managed. Initial orders include: ekg, cxr, basic labs acc eval
--- NOTE | 2019-01-29 12:03 | XRay Report ---
CHEST 2 VIEWS INDICATION / CLINICAL INFORMATION: Chest pain. COMPARISON: 12/19/2018 FINDINGS: SUPPORT DEVICES: None. HEART / MEDIASTINUM: No significant abnormality. LUNGS / PLEURA: No significant pulmonary or pleural abnormality. No pneumothorax. ADDITIONAL FINDINGS: No significant additional findings. IMPRESSION: 1. No acute findings. Signer Name: Denilson Zurita MD Signed: 01/29/2019 11:59 AM Workstation Name: [id number]
[2019-01-29 12:39] LABS: Basophils # (Auto) 0.1 K/mm3 (0.0-0.1); Basophils % (Auto) 1.1 % (0.0-1.8); Eosinophils # (Auto) 0.1 K/mm3 (0.0-0.4); Eosinophils % (Auto) 0.9 % (0.0-4.3); Hematocrit 39.2 % (30.3-42.9); Hemoglobin 12.7 gm/dl (10.1-14.3); Lymphocytes # (Auto) 2.3 K/mm3 (1.2-5.4); Lymphocytes % (Auto) 44.2 % (13.4-35.0); Mean Corpuscular HGB Conc 32 % (30-34); Mean Corpuscular Volume 85 fl (79-97); Monocytes # (Auto) 0.8 K/mm3 (0.0-0.8); Monocytes % (Auto) 14.4 % (0.0-7.3); Platelet Count 399 K/mm3 (140-440); Red Blood Count 4.63 M/mm3 (3.65-5.03); Red Cell Distribution Width 14.1 % (13.2-15.2)
[2019-01-29 13:00] LABS: BUN/Creatinine Ratio 10; Blood Urea Nitrogen 8 mg/dL (7-17); Calcium 9.2 mg/dL (8.4-10.2); Hemolysis Index 13
[2019-01-29] MEDS ORDERED: METOCLOPRAMIDE 10 MG/2 ML INJ IV STA (18:38)
[2019-01-29] MEDS ORDERED: SODIUM CHLORIDE 0.9% 1000 ML 1,000 ML IV ONE (18:38)
[2019-01-29] MEDS ORDERED: diphenhydrAMINE 50 MG/ML VIAL IV STA (18:38)
[2019-01-29] MEDS ORDERED: ONDANSETRON 4 MG/2 ML INJ IV STA (18:38)
[2019-01-29] MEDS ORDERED: KETOROLAC 30 MG/1 ML INJ IV STA (18:38)
--- NOTE | 2019-01-29 18:44 | Emergency Department Report ---
ED Headache HPI - General Chief Complaint: High BP Stated Complaint: CP/HEADACHE/HIGH BLOOD PRESSURE Time Seen by Provider: 01/29/19 14:09 Source: patient - History of Present Illness Initial Comments: 33-year-old -[place] female presents to the emergency department complaining pains and is very tender with direct palpation. Reports no palpitations, no hemoptysis hematemesis, no congestion, shortness of breath, no dizziness. she reports no prior history of heart attacks or cad Timing/Duration: other (23 fdays) Quality: moderate Head Injury Location: frontal, parietal Recent Head Trauma: occasional headaches Associated Symptoms: denies: confusion, facial pain, fever/chills, nasal congestion, stiff neck, vision changes Allergies/Adverse Reactions: Allergies Penicillins Allergy (Verified 01/29/19 10:48) Rash Home Medications: Ambulatory Orders Amoxicillin [Trimox CAP] 500 mg PO BID #20 capsule 08/25/18 Azithromycin [Zithromax Z-YUDY] 250 mg PO DAILY #6 tablet 08/25/18 Cetirizine HCl [ZyrTEC] 10 mg PO DAILY #30 capsule 08/25/18 Fluticasone [Flonase] 1 spray NS QDAY #1 bottle 08/25/18 predniSONE [Deltasone] 20 mg PO DAILY #5 tablet 08/25/18 Ketorolac [Toradol] 10 mg PO Q6H PRN #15 tablet 11/09/18 traMADoL [Ultram] 50 mg PO Q6HR PRN #20 tablet 11/09/18 ALBUTEROL Inhaler (OR & NICU) [ProAir HFA Inhaler] 2 puff IH QID PRN #1 inhalation 12/19/18 Azithromycin [Zithromax Z-YUDY] 250 mg PO DAILY #6 tab 12/19/18 Benzonatate [Tessalon Perles] 100 mg PO Q8HR PRN #30 capsule 12/19/18 Ibuprofen [Motrin 800 MG tab] 800 mg PO Q8HR PRN #30 tablet 12/19/18 predniSONE [Deltasone] 40 mg PO QDAY 5 Days #10 tab 12/19/18 Butalb/Acetaminophen/Caffeine [Fioricet 50-300-40 mg CAP] 1 cap PO Q8HR PRN #20 cap 01/29/19 ED Review of Systems ROS: Stated complaint: CP/HEADACHE/HIGH BLOOD PRESSURE Other details as noted in HPI Comment: All other systems reviewed and negative ED Past Medical Hx - Past Medical History Hx Asthma: Yes Additional medical history: Vaginal delivery x1 - Surgical History Hx Breast Surgery: Yes (Breast reduction) Additional Surgical History: Miscarriage x 1 - Social History Smoking Status: Never Smoker Substance Use Type: None - Medications Home Medications: Home Medications Medication Instructions Recorded Confirmed Last Taken Type Amoxicillin [Trimox CAP] 500 mg PO BID #20 capsule 08/25/18 Unknown Rx Azithromycin [Zithromax Z-YUDY] 250 mg PO DAILY #6 tablet 08/25/18 Unknown Rx Cetirizine HCl [ZyrTEC] 10 mg PO DAILY #30 capsule 08/25/18 Unknown Rx Fluticasone [Flonase] 1 spray NS QDAY #1 bottle 08/25/18 Unknown Rx predniSONE [Deltasone] 20 mg PO DAILY #5 tablet 08/25/18 Unknown Rx Ketorolac [Toradol] 10 mg PO Q6H PRN #15 tablet 11/09/18 Unknown Rx traMADoL [Ultram] 50 mg PO Q6HR PRN #20 tablet 11/09/18 Unknown Rx ALBUTEROL Inhaler (OR & NICU) 2 puff IH QID PRN #1 inhalation 12/19/18 Unknown Rx [ProAir HFA Inhaler] Azithromycin [Zithromax Z-YUDY] 250 mg PO DAILY #6 tab 12/19/18 Unknown Rx Benzonatate [Tessalon Perles] 100 mg PO Q8HR PRN #30 capsule 12/19/18 Unknown Rx Ibuprofen [Motrin 800 MG tab] 800 mg PO Q8HR PRN #30 tablet 12/19/18 Unknown Rx predniSONE [Deltasone] 40 mg PO QDAY 5 Days #10 tab 12/19/18 Unknown Rx Butalb/Acetaminophen/Caffeine 1 cap PO Q8HR PRN #20 cap 01/29/19 Unknown Rx [Fioricet 50-300-40 mg CAP] ED Physical Exam - General Limitations: No Limitations General appearance: alert, in no apparent distress - Head Head exam: Present: atraumatic, normocephalic - Eye Eye exam: Present: normal appearance, PERRL, EOMI. Absent: conjunctival injection, nystagmus, periorbital swelling, periorbital tenderness Pupils: Present: normal accommodation - ENT ENT exam: Present: normal exam, normal orophraynx, mucous membranes moist - Neck Neck exam: Present: normal inspection, full ROM. Absent: tenderness, meningismus, lymphadenopathy - Respiratory Respiratory exam: Present: normal lung sounds bilaterally. Absent: respiratory distress, rales, rhonchi, chest wall tenderness, accessory muscle use, decreased breath sounds - Cardiovascular Cardiovascular Exam: Present: regular rate, normal rhythm. Absent: systolic murmur, diastolic murmur, rubs, gallop - GI/Abdominal GI/Abdominal exam: Present: soft, normal bowel sounds. Absent: distended, tenderness, guarding, rebound, hyperactive bowel sounds, hypoactive bowel sounds, organomegaly, mass, bruit - Extremities Exam Extremities exam: Present: normal inspection - Back Exam Back exam: Present: normal inspection - Neurological Exam Neurological exam: Present: alert, oriented X3 - Psychiatric Psychiatric exam: Present: normal affect, normal mood - Skin Skin exam: Present: warm, dry, intact, normal color. Absent: rash ED Course Vital Signs 01/29/19 01/29/19 11:21 20:07 Temperature 98.4 F 97.6 F Pulse Rate 74 79 Respiratory 18 18 Rate Blood Pressure 129/79 Blood Pressure 118/49 [Left] O2 Sat by Pulse 97 100 Oximetry - Reevaluation(s) Reevaluation #1: 01/29/19 20:26 Patient alert and oriented 3 headache 100% resolved no distress ED Medical Decision Making - Lab Data Result diagrams: 01/29/19 12:10 01/29/19 12:10 - EKG Data EKG shows normal: sinus rhythm Rate: normal - EKG Data When compared to previous EKG there are: no significant change Interpretation: no acute changes - Medical Decision Making 33 y/o female presents with chest pain that is very unlikely angina or acute coronary syndrome. The emergency department evaluation has not identified any cause for suspicion that this chest pain has a cardiac etiology. Based on their history, EKG (which showed no evidence of ischemia or infarction) and imaging, in addition to the patient's physical exam, I see no evidence at this time for a malignant etiology for the patient's chest pain. There is no acute evidence for pulmonary embolus, acute myocardial infarction, pneumothorax, Boerhaeve syndrome, cardiac tamponade, thoracic artery dissection, or any other emergent cardiac, pulmonary or aortic pathology. Given the low pre-test probability for cardiac etiology of chest pain and the absence of any sign of ischemia or infarction, discharge for outpatient follow-up and further evaluation is reasonable. I have explained to the patient that even though a cardiac problem is very unlikely, follow-up and further testing is required to reduce further the already small uncertainty that exists. Other life-threatening diagnoses have been considered. The patient understands the need to return immediately if their symptoms worsen or they develop any new symptoms, and not to engage in any significant exertional activity until follow-up is obtained. Critical care attestation.: If time is entered above; I have spent that time in minutes in the direct care of this critically ill patient, excluding procedure time. ED Disposition Clinical Impression: Cephalgia, Chest pain Disposition: DC-01 TO HOME OR SELFCARE Is pt being admited?: No Does the pt Need Aspirin: No Condition: Stable Instructions: Chest Pain (ED), Migraine Headache (ED), Acute Headache (ED) Additional Instructions: You have been evaluated in the Emergency Department today for chest pain. Your evaluation was not suggestive of any emergent condition requiring medical intervention at this time. Your EKG did not show any acute changes. Please follow up with your primary care physician as needed. You should also follow with a operations leader for further evaluation and treatment options including but not limited to exercise stress test If you do not have a primary doctor, you can call your insurance company to find one. If you do not have insurance, you can go to the finance/registration department for more assistance. Return to the ER immediately for worsening chest pain, palpitations, shortness of breath, persistent vomiting, fainting, or for any other concerning symptoms. Prescriptions: Butalb/Acetaminophen/Caffeine [Fioricet 50-300-40 mg CAP] 1 cap PO Q8HR PRN #20 cap PRN Reason: headache Referrals: [facility] [Provider Group] - 3-5 Days
[2019-01-29 20:09] VITALS: BP 118/49
== END 2019-01-29 21:02 | disposition home or self-care (01) ==
LOC: ED 10:44
DX: R51 Headache (principal); R07.89 Other chest pain; J45.909 Unspecified asthma, uncomplicated; Z88.0 Allergy status to penicillin; Z79.899 Other long term (current) drug therapy; Z79.1 Long term (current) use of non-steroidal anti-inflammatories (NSAID)
CPT/HCPCS: 36415; 71046; 80048; 84484; 85025; 93005; 93010; 96374; 96375; 99284; J1200; J1885; J2405; J2765; J7030